=== PATIENT | male | born 1990 | race Caucasian/White ===

== ENCOUNTER 2021-05-29 22:05 | Emergency (ER) | payer OTHER ==
[2021-05-29 22:27] VITALS: BP 151/73; PULSE 107; RESP 18; TEMP 99.1
--- NOTE | 2021-05-30 00:17 | ED ---
Skin/Abscess/FB HPI - General Chief complaint: Needlestick/Exposure Stated complaint: L [place] Time Seen by Provider: 05/30/21 00:09 Source: patient Mode of arrival: ambulatory Limitations: no limitations - History of Present Illness Initial comments: 30-year-old male patient presents to the emergency department today for evaluation of possible needlestick injury. He was clearing tools used during a surgical procedure and when he removed his gloves he realized he was bleeding. The materials he was using were sharp metallic objects, some needles. He is unsure exactly what caused the injury. He is up to date on hepatitis B and tetanus vaccine. - Related Data Allergies Allergy/AdvReac Type Severity Reaction Status Date / Time sulfamethoxazole AdvReac Rash/Hives Verified 05/29/21 22:24 [From Bactrim] trimethoprim [From Bactrim] AdvReac Rash/Hives Verified 05/29/21 22:24 Review of Systems ROS Statement: Those systems with pertinent positive or pertinent negative responses have been documented in the HPI. ROS Other: All systems not noted in ROS Statement are negative. Past Medical History Past Medical History: No Reported History History of Any Multi-Drug Resistant Organisms: None Reported Past Surgical History: No Surgical Hx Reported Past Psychological History: No Psychological Hx Reported Smoking Status: Never smoker Past Alcohol Use History: Occasional Past Drug Use History: None Reported General Exam Limitations: no limitations General appearance: alert, in no apparent distress Neurological exam: Present: alert, oriented X3, CN II-XII intact Psychiatric exam: Present: normal affect, normal mood Course Vital Signs 05/29/21 22:24 Temperature 99.1 F Pulse Rate 107 H Respiratory 18 Rate Blood Pressure 151/73 O2 Sat by Pulse 100 Oximetry Medical Decision Making - Medical Decision Making 30-year-old male patient presented to the emergency department for evaluation after possibly sustaining needlestick versus blood exposure injury to his hand. Physical examination is unremarkable. We did draw labs and sent for baseline testing. We did rapid HIV on the source which was negative. He is discharged at this time. Instructed to follow-up with employee health services. Return parameters were discussed in detail. He verbalizes understanding and agrees with this plan. My attending is Dr. Madrigal. Disposition Clinical Impression: Needlestick injury of finger Disposition: HOME SELF-CARE Condition: Good Instructions (If sedation given, give patient instructions): Body Substance Exposure (ED) Additional Instructions: Await rapid testing results. Follow-up with your primary care physician or employee health services as needed. Return for any new, worsening, or concerning symptoms. Is patient prescribed a controlled substance at d/c from ED?: No Referrals: Benjamin Mathews MD [Primary Care Provider] - 1-2 days Time of Disposition: 00:17
[2021-05-30 12:31] LABS: Hepatitis B Surface AB- Quant 3.5 mIU/mL; Hepatitis B Surface Antibody Nonreactive (Nonreactive); Hepatitis B Surface Antigen Nonreactive (Nonreactive); Hepatitis C IgG Antibody Nonreactive (Nonreactive)
[2021-05-30 21:02] LABS: HIV 2 AB Non-Reactive (Non-Reactive); HIV AB P24 Non-Reactive (Non-Reactive); HIV P24 AG Non-Reactive (Non-Reactive)
== END 2021-05-30 00:26 | disposition home or self-care (01) ==
LOC: EC 22:05
DX: S61.442A Puncture wound with foreign body of left hand, initial encounter (principal); Z88.1 Allergy status to other antibiotic agents; Z88.2 Allergy status to sulfonamides; W46.1XXA Contact with contaminated hypodermic needle, initial encounter
CPT/HCPCS: 36415; 86706; 86803; 87340; 87390; 99283